=== PATIENT | female | born 1965 | race African-American/Black ===

== ENCOUNTER 2020-08-03 08:39 | Emergency (ER) | payer OTHER, MEDICAID ==
[~2020-08-03] VITALS: Ht 154.9 cm; Wt 94.8 kg
[~2020-08-03 08:39] MED LIST: FLUO20CA19; IBU600T; PRAVACHOL; TOPI25TA43
[2020-08-03 08:40] VITALS: BP 126/83
[2020-08-03] MEDS ORDERED: KETOROLAC TROMETH 60MG/2ML VIAL IM ONE (09:15)
== END 2020-08-03 09:53 | disposition home or self-care (01) ==
LOC: ER 08:39
DX: M51.36 Other intervertebral disc degeneration, lumbar region (principal); E66.01 Morbid (severe) obesity due to excess calories; E78.5 Hyperlipidemia, unspecified; I10 Essential (primary) hypertension; Z68.39 Body mass index [BMI] 39.0-39.9, adult
CPT/HCPCS: 72100; 96372; 99283; J1885

== ENCOUNTER 2023-09-03 12:59 | Inpatient (IN) | payer OTHER, MEDICAID ==
[~2023-09-03] VITALS: Ht 154.9 cm; Wt 106.0 kg
[2023-09-03 14:31] LABS: Basophils # (auto) 0.1 10 ^3/uL (0-0.2); Basophils % (auto) 1.1 % (0.0-2.0); Eosinophils # (auto) 0.2 10 ^3/uL (0-0.8); Eosinophils % (auto) 2.7 % (0.0-7.0); Hematocrit 39.2 % (36.0-46.0); Hemoglobin 12.2 g/dL (12.2-16.2); Lymphocytes # (auto) 2.5 10 ^3/uL (0.4-5.4); Lymphocytes % (auto) 42.3 % (10.0-50.0); Mean Corpuscular Hemoglobin 23.3 pg (28.0-32.0); Mean Corpuscular Hgb Conc. 31.2 g/dL (32.0-36.0); Mean Corpuscular Volume 74.7 fL (80.0-100.0); Monocytes # (auto) 0.4 10 ^3/uL (0-1.3); Monocytes % (auto) 7.3 % (0.0-12.0); Neutrophils # (auto) 2.7 10 ^3/uL (1.6-8.6); Neutrophils % (auto) 46.6 % (37.0-80.0); Nucleated Red Blood Cells % 0.2 %; Red Blood Cells 5.24 10^6/uL (4.0-5.20); Red Cell Distribution Width 16.1 % (11.8-14.3); White Blood Cell 5.9 10^3/uL (4.4-10.8)
[2023-09-03] MEDS: IOHEXOL 350 MG/ML 100ML IJ ONE (14:48)
[2023-09-03 14:49] LABS: Chloride 107 mmol/L (98-107); Potassium 3.8 mmol/L (3.5-5.1); Sodium 141 mmol/L (136-145)
[2023-09-03 14:50] LABS: Anion Gap 5 (5-15); Calcium 9.4 mg/dL (8.7-10.4); Carbon Dioxide 29 mmol/L (20-30)
[2023-09-03 14:55] LABS: BUN/Creatinine Ratio 19.6 (10.0-20.0); Blood Urea Nitrogen 18 mg/dL (9-23); Glucose 86 mg/dL (74-106)
[2023-09-03] MEDS: HYDROmorphone HCL 2 MG/ML VL/or syr IM ONE (16:47)
[2023-09-03] MEDS: ONDANSETRON HCL 4 MG/2 ML VIAL IM ONE (16:47)
[2023-09-03] MEDS ORDERED: NITROGLYCERIN 0.4 MG SL TAB SL PRN (18:00)
[2023-09-03] MEDS ORDERED: HYDROcodone-ACET 5/325MG TAB PO PRN (18:00)
[2023-09-03] MEDS: FUROSEMIDE 20 MG/2 ML VIAL IV SCH (19:42)
[2023-09-03] MEDS: ENOXAPARIN SOD 100 MG/1 ML SYRINGE SC SCH (19:43)
[2023-09-03] MEDS: HYDROmorphone HCL 2 MG/ML VL/or syr IV ONE ×2 (21:17→23:51)
[2023-09-03] MEDS: POTASSIUM CHL 10 Meq TABLET PO SCH (22:34)
[2023-09-03 23:05] VITALS: PULSE 62; RESP 17; O2SAT 94
[2023-09-04] VITALS (7 sets, daily range): BP systolic 109–134; BP diastolic 55–78; PULSE 59–81; RESP 16–22; TEMP 97.7–98.2; O2SAT 92–98
[2023-09-04] MEDS ORDERED: QUET25TA37 PO (01:37)
[2023-09-04] MEDS ORDERED: ATEN-60 PO (01:37)
[2023-09-04] MEDS ORDERED: ATOR20TA PO (01:37)
[2023-09-04] MEDS ORDERED: HYDR-4798 PO (01:37)
[2023-09-04] MEDS: QUEtiapine FUMARATE 25 MG TAB PO ONE (02:26)
[2023-09-04 05:27] LABS: Basophils # (auto) 0 10 ^3/uL (0-0.2); Eosinophils # (auto) 0.2 10 ^3/uL (0-0.8); Hemoglobin 10.9 g/dL (12.2-16.2); Monocytes # (auto) 0.4 10 ^3/uL (0-1.3); Neutrophils # (auto) 2.6 10 ^3/uL (1.6-8.6); Red Cell Distribution Width 15.9 % (11.8-14.3)
[2023-09-04 05:29] LABS: Basophils % (auto) 0.6 % (0.0-2.0); Lymphocytes # (auto) 2.2 10 ^3/uL (0.4-5.4); Lymphocytes % (auto) 40.4 % (10.0-50.0); Mean Corpuscular Volume 75.1 fL (80.0-100.0); Monocytes % (auto) 7.8 % (0.0-12.0); Neutrophils % (auto) 47.2 % (37.0-80.0); Nucleated Red Blood Cells % 0.1 %; Red Blood Cells 4.53 10^6/uL (4.0-5.20); White Blood Cell 5.4 10^3/uL (4.4-10.8)
[2023-09-04 05:36] LABS: Chloride 105 mmol/L (98-107); Potassium 3.9 mmol/L (3.5-5.1); Sodium 140 mmol/L (136-145)
[2023-09-04 05:37] LABS: Anion Gap 5 (5-15); Calcium 8.9 mg/dL (8.7-10.4); Carbon Dioxide 30 mmol/L (20-30)
[2023-09-04 05:42] LABS: BUN/Creatinine Ratio 14.1 (10.0-20.0); Blood Urea Nitrogen 12 mg/dL (9-23); Glucose 109 mg/dL (74-106)
[2023-09-04 05:45] LABS: INR 1.08 (0.9-1.15); Partial Thromboplastin Time 33.8 SEC (24.5-34.5); Prothrombin Time 11.3 sec (9.3-11.8)
[2023-09-04] MEDS ORDERED: APIX5TAB PO (08:17)
[2023-09-04] MEDS ORDERED: QUEtiapine FUMARATE 25 MG TAB PO SCH (10:00)
[2023-09-04] MEDS: HYDROcodone-ACET 10/325MG TAB PO PRN (12:46)
[2023-09-04] MEDS: ENOXAPARIN SOD 80 MG/0.8ML SYRINGE SC SCH (21:01)
[2023-09-04] MEDS: QUEtiapine FUMARATE 25 MG TAB PO SCH (21:02)
[2023-09-04] MEDS: ATORVASTATIN 20 MG TAB PO SCH (21:02)
[2023-09-05 05:01] VITALS: BP 138/61; PULSE 62; RESP 16; TEMP 97.7; O2SAT 100
[2023-09-05 06:01] LABS: Anion Gap 5 (5-15); Carbon Dioxide 31 mmol/L (20-30); Chloride 104 mmol/L (98-107); Potassium 3.7 mmol/L (3.5-5.1); Sodium 140 mmol/L (136-145)
[2023-09-05 06:02] LABS: Calcium 9.2 mg/dL (8.7-10.4)
[2023-09-05 06:07] LABS: BUN/Creatinine Ratio 13.8 (10.0-20.0); Blood Urea Nitrogen 11 mg/dL (9-23); Glucose 102 mg/dL (74-106)
[2023-09-05 08:00] VITALS: PULSE 67; O2SAT 98
[2023-09-05 09:00] VITALS: BP 117/85; PULSE 66; RESP 16; TEMP 98; O2SAT 100
[2023-09-05 13:21] VITALS: BP 111/58; PULSE 74; RESP 15; TEMP 98; O2SAT 100
[2023-09-05] MEDS ORDERED: SPIR25TA8 PO (13:31)
[2023-09-05 15:25] VITALS: BP 111/58; PULSE 74; RESP 15; TEMP 98; O2SAT 100
[2023-09-05 16:48] VITALS: BP 143/96; PULSE 69; RESP 14; TEMP 98.4; O2SAT 96
== END 2023-09-05 18:00 | disposition home or self-care (01) | DRG 176 ==
LOC: ER 12:59 → TELE 17:54 → TELE-WESTW 23:00
PROVIDERS: ADMIT Hospitalist; ATTEND Hospitalist
DX: I26.99 Other pulmonary embolism without acute cor pulmonale (principal); Z68.41 Body mass index [BMI] 40.0-44.9, adult; I50.32 Chronic diastolic (congestive) heart failure; E66.01 Morbid (severe) obesity due to excess calories; E78.5 Hyperlipidemia, unspecified; F41.9 Anxiety disorder, unspecified; I11.0 Hypertensive heart disease with heart failure; Z79.899 Other long term (current) drug therapy; Z86.718 Personal history of other venous thrombosis and embolism; Z86.711 Personal history of pulmonary embolism
CPT/HCPCS: 36415; 71275; 80048; 83735; 84484; 85025; 85610; 85730; 93005; 93306; 93970; 97163; 99291; G0378; J2405